=== PATIENT | male | born 2000 | race Caucasian/White ===

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

== ENCOUNTER → 2018-03-15 15:39 | Outpatient (CLI) | payer OTHER, SELFPAY ==
--- NOTE | 2018-03-15 15:45 | XR_ITS ---
XR shoulder RT min 2V HISTORY: ITS.REASON: RT SHOULDER PAIN ORDERING PHYSICIAN: Sudha Burris PATIENT AGE: 17 years Comparison: None FINDINGS: No fracture or dislocation. No lytic or blastic change. There is normal mineralization. The joint spaces are well-preserved. No significant degenerative/arthritic changes. No erosive changes evident. IMPRESSION: Negative, no acute finding
== END ==
PROVIDERS: PCP Nurse Practitioner Family; Visit Provider Nurse Practitioner Family
DX: M25.511 Pain in right shoulder (principal)
CPT/HCPCS: 73030